=== PATIENT | female | born 1960 | race Caucasian/White ===

== ENCOUNTER 2024-03-30 10:27 | Emergency (ER) | payer MEDICARE, OTHER ==
[~2024-03-30] VITALS: Ht 160 cm; Wt 70.3 kg
[2024-03-30] MEDS ORDERED: CYCL5TAB PO (11:33)
[2024-03-30] MEDS ORDERED: LIDO30AD10 TP (11:33)
[2024-03-30] MEDS ORDERED: LIDOCAINE 5% (PATCH) 1 EA PATCH TP ONE (11:35)
[2024-03-30] MEDS: LIDOCAINE 5% (PATCH) 1 EA PATCH TP STA (11:35)
[2024-03-30] MEDS: CYCLOBENZAPRINE 10 MG TABLET PO ONE (11:35)
[2024-03-30] MEDS ORDERED: CYCLOBENZAPRINE 10 MG TABLET ONE (11:35)
[2024-03-30 11:46] VITALS: BP 138/77; TEMP 98; O2SAT 98
== END 2024-03-30 11:46 | disposition home or self-care (01) ==
LOC: ER 10:27
DX: M54.6 Pain in thoracic spine (principal)